=== PATIENT | female | born 1970 | race Caucasian/White ===

== ENCOUNTER 2021-11-05 13:22 | Emergency (ER) | payer BC, OTHER ==
[2021-11-05] MEDS ORDERED: Sodium Chloride 0.9% 10 ML Syringe FLUSH PRN (13:50)
[2021-11-05] MEDS ORDERED: diphenhydrAMINE 50 MG/ML SDV IVPUSH ONE (13:51)
[2021-11-05] MEDS ORDERED: Promethazine 25 MG/ML SDV IM ONE (13:51)
[2021-11-05] MEDS ORDERED: Ketorolac 30 MG/ML SDV IVPUSH ONE (13:51)
[2021-11-05] MEDS ORDERED: Sodium Chloride 0.9% 1,000 ML IV ONE (14:35)
== END 2021-11-05 15:30 | disposition home or self-care (01) ==
LOC: LL.ED 13:22
DX: G43.009 Migraine without aura, not intractable, without status migrainosus (principal); E66.9 Obesity, unspecified; Z68.36 Body mass index [BMI] 36.0-36.9, adult; Z88.1 Allergy status to other antibiotic agents; Z88.5 Allergy status to narcotic agent
CPT/HCPCS: 96372; 96374; 96375; 99283-25; 99284; J1200; J1885; J2550; J3490; J7030